=== PATIENT | female | born 1990 | race Caucasian/White ===

== ENCOUNTER 2017-08-27 04:24 | Emergency (ER) | payer BC ==
[2017-08-27 04:37] VITALS: O2SAT 98
--- NOTE | 2017-08-27 04:54 | ERPHSYRPT ---
- History of Present Illness Time Seen by Provider: 08/27/17 04:37 Source: patient Exam Limitations: no limitations Patient Subjective Stated Complaint: Anxiety Triage Nursing Assessment: Pt presents to the ED with complaints of chest heaviness, and anxiety. Pt states she has had a "cold" for approximately 4 days and then began to have anxiety and chest heaviness 2 days ago. Pt denies pain, sob, or other complaints. Pt is A&O x4, no distress noted. Physician History: FOR THE PAST 5 DAYS PT HAS HAD INTERMITTENT CHEST HEAVINESS LASTING UP TO 12 HOURS AND A NON-PRODUCTIVE COUGH; FOR THE PAST 4 HOURS SHAKINESS, PANIC AND DIARRHEA X1. PT DENIES SHORTNESS OF AIR, FEVER, VOMITING. Allergies/Adverse Reactions: No Known Drug Allergies Allergy (Unverified 08/27/17 04:39) Home Medications: Metformin HCl 500 mg [Glucophage 500 MG] 500 mg PO QAM 08/27/17 [History] Hx Tetanus, Diphtheria Vaccination/Date Given: Yes Hx Influenza Vaccination/Date Given: No Hx Pneumococcal Vaccination/Date Given: No Immunizations Up to Date: Yes - Review of Systems Constitutional: No Fever Respiratory: Cough, No Dyspnea Cardiac: Other (CHEST HEAVINESS) Abdominal/Gastrointestinal: Diarrhea, No Abdominal Pain, No Vomiting Neurological: Other (SHAKINESS; PANIC.) Endocrine: No Excessive Sweating All Other Systems: Reviewed and Negative - Past Medical History Pertinent Past Medical History: No Neurological History: No Pertinent History ENT History: No Pertinent History Cardiac History: No Pertinent History Respiratory History: No Pertinent History Endocrine Medical History: No Pertinent History Musculoskeletal History: No Pertinent History GI Medical History: No Pertinent History History: No Pertinent History Psycho-Social History: No Pertinent History Female Reproductive Disorders: Other Other Medical History: Polycystic ovarian syndrome. - Past Surgical History Past Surgical History: No Neuro Surgical History: No Pertinent History Cardiac: No Pertinent History Respiratory: No Pertinent History Gastrointestinal: No Pertinent History Genitourinary: No Pertinent History Musculoskeletal: No Pertinent History Female Surgical History: No Pertinent History - Social History Smoking Status: Never smoker Exposure to second hand smoke: No Drug Use: none Patient Lives Alone: No - Female History Hx Last Menstrual Period: 06/01/2018 Hx Now: No - Nursing Vital Signs Nursing Vital Signs: Initial Vital Signs Temperature 97.7 F 08/27/17 04:31 Pulse Rate 120 H 08/27/17 04:31 Respiratory Rate 15 08/27/17 04:31 Blood Pressure 136/93 08/27/17 04:31 O2 Sat by Pulse Oximetry 98 08/27/17 04:31 Pain Scale Pain Intensity 0 - Physical Exam General Appearance: alert, anxiety Eye Exam: PERRL/EOMI Ears, Nose, Throat Exam: TMs normal, pharynx normal, moist mucous membranes Neck Exam: normal inspection Respiratory Exam: lungs clear Cardiovascular Exam: normal heart sounds Gastrointestinal/Abdomen Exam: soft, normal bowel sounds Back Exam: normal range of motion Extremity Exam: normal inspection, No pedal edema Neurologic Exam: alert, cooperative Skin Exam: warm, dry SpO2 Interpretation: normal SpO2: 98 Oxygen Delivery: Room Air - Course Nursing assessment & vital signs reviewed: Yes EKG Interpreted by Me: RATE (105), Sinus Tach, NORMAL AXIS, Non-specific ST Changes - Radiology Exams Chest X-ray Interpretation: Interpreted by me, No Pneumonia Ordered Tests: Active Orders 24 hr Category Date Time Status Svp Group Director STAT Care 08/27/17 04:56 Active EKG-ER Only STAT Care 08/27/17 04:55 Active IV Insertion STAT Care 08/27/17 04:55 Active CHEST 2 VIEWS (PA AND LAT) Stat Exams 08/27/17 04:55 Ordered AMYLASE Stat Lab 08/27/17 05:32 Completed CBC W DIFF Stat Lab 08/27/17 05:32 Completed CMP Stat Lab 08/27/17 05:32 Completed CULTURE,URINE Stat Lab 08/27/17 04:55 Received D-DIMER QUANTITATION Stat Lab 08/27/17 05:32 Completed HCG QUALITATIVE,SERUM Stat Lab 08/27/17 05:32 Completed LIPASE Stat Lab 08/27/17 05:32 Completed MAGNESIUM Stat Lab 08/27/17 05:32 Completed NT PRO BNP Stat Lab 08/27/17 05:32 Completed TROPONIN Q3H Lab 08/27/17 05:32 Completed TROPONIN Q3H Lab 08/27/17 08:00 Ordered TROPONIN Q3H Lab 08/27/17 11:00 Ordered TROPONIN Q3H Lab 08/27/17 14:00 Ordered TROPONIN Q3H Lab 08/27/17 17:00 Ordered UA W/ MICROSCOPIC Stat Lab 08/27/17 04:55 Completed Urine Triage Profile Stat Lab 08/27/17 04:55 Completed Medication Summary Generic Name Dose Route Start Last Admin Trade Name Freq PRN Reason Stop Dose Admin Sodium Chloride 1,000 mls @ 100 mls/hr 08/27/17 05:00 08/27/17 05:29 Sodium Chloride 0.9% 1000 Ml IV 09/26/17 04:59 100 mls/hr .Q10H HAYLEY Administration Ceftriaxone Sodium/Dextrose 1 g in 50 mls @ 100 mls/hr 08/27/17 06:31 06:42 Rocephin 1 Gm-D5w 50 Ml Bag IV 08/27/17 07:00 100 mls/hr STAT STA Administration Discontinued Medications Generic Name Dose Route Start Last Admin Trade Name Pito PRN Reason Stop Dose Admin Aspirin 324 mg 08/27/17 04:55 08/27/17 05:28 Baby Aspirin 81 Mg Chew PO 08/27/17 04:56 324 mg STAT ONE Administration Aspirin Confirm 08/27/17 05:14 Baby Aspirin 81 Mg Chew Administered 08/27/17 05:15 Dose 324 mg .ROUTE .STK-MED ONE Diazepam 10 mg 08/27/17 04:56 08/27/17 05:28 Valium 5 Mg PO 08/27/17 04:57 10 mg STAT ONE Administration Diazepam Confirm 08/27/17 05:14 Valium 5 Mg Administered 08/27/17 05:15 Dose 10 mg .ROUTE .STK-MED ONE Ceftriaxone Sodium/Dextrose Confirm 08/27/17 06:41 Rocephin 1 Gm-D5w 50 Ml Bag Administered 08/27/17 06:42 Dose 1 g in 50 mls @ ud IV .STK-MED ONE Lab/Rad Data: Laboratory Result Diagrams 08/27/17 05:32 08/27/17 05:32 Laboratory Results 08/27/17 08/27/17 08/27/17 Range/Units 05:32 05:32 05:32 WBC (4.0-10.5) K/mm3 RBC (4.1-5.4) M/mm3 Hgb (12.0-16.0) gm/dl Hct (35-47) % MCV (78-100) fl MCH (26-32) pg MCHC (32-36) g/dl RDW (11.5-14.0) % Plt Count (150-450) K/mm3 MPV (6-9.5) fl Gran % (36.0-66.0) % Lymphocytes % (24.0-44.0) % Monocytes % (0.0-12.0) % Eosinophils % (0.00-5.0) % Basophils % (0.0-0.4) % Basophils # (0-0.4) D-Dimer 288.64 (0-500) ng/mL Sodium (136-145) mEq/L Potassium (3.5-5.1) mEq/L Chloride (98-107) mEq/L Carbon Dioxide (21-32) mEq/L Anion Gap (5-15) MEQ/L BUN (9-20) mg/dL Creatinine (0.55-1.30) mg/dl Estimated GFR ML/MIN Glucose (70-110) MG/DL Calcium (8.5-10.1) mg/dL Magnesium (1.8-2.4) mg/dL Total Bilirubin (0.2-1.0) mg/dL AST (15-37) U/L ALT (12-78) U/L Alkaline Phosphatase (46-116) U/L Troponin I < 0.017 (0.000-0.056) ng/ml NT-Pro-B Natriuret Pep (0-125) pg/ml Serum Total Protein (6.4-8.2) gm/dL Albumin (3.4-5.0) g/dL Amylase (25-115) U/L Lipase (73-393) U/L Serum , Qual NEGATIVE (Negative) Ur Collection Type Urine Color (YELLOW) Urine Appearance (CLEAR) Urine pH (5-6) Ur Specific [place] (1.005-1.025) Urine Protein (Negative) Urine Ketones (NEGATIVE) Urine Blood (0-5) Mitch/ul Urine Nitrite (NEGATIVE) Urine Bilirubin (NEGATIVE) Urine Urobilinogen (0-1) mg/dL Ur Leukocyte Esterase (NEGATIVE) Urine Microscopic RBC (0-2) /HPF Urine Microscopic WBC (0-5) /HPF Ur Epithelial Cells (FEW) /HPF Urine Bacteria (NEGATIVE) /HPF Urine Culture Reflexed (NO) Urine Glucose (NEGATIVE) mg/dL Urine Opiates Level (NEGATIVE) Ur Methadone (NEGATIVE) Urine Barbiturates (NEGATIVE) Ur Phencyclidine (PCP) (NEGATIVE) Urine Amphetamine (NEGATIVE) U Benzodiazepine Level (NEGATIVE) Urine Cocaine (NEGATIVE) Urine Marijuana (THC) (NEGATIVE) Specimen Received 08/27/17 08/27/17 08/27/17 Range/Units 05:32 05:32 04:55 WBC 8.8 (4.0-10.5) K/mm3 RBC 4.58 (4.1-5.4) M/mm3 Hgb 12.9 (12.0-16.0) gm/dl Hct 39.8 (35-47) % MCV 86.9 (78-100) fl MCH 28.2 (26-32) pg MCHC 32.4 (32-36) g/dl RDW 13.7 (11.5-14.0) % Plt Count 246 (150-450) K/mm3 MPV 10.2 H (6-9.5) fl Gran % 73.4 H (36.0-66.0) % Lymphocytes % 19.3 L (24.0-44.0) % Monocytes % 5.7 (0.0-12.0) % Eosinophils % 1.3 (0.00-5.0) % Basophils % 0.3 (0.0-0.4) % Basophils # 0.03 (0-0.4) D-Dimer (0-500) ng/mL Sodium 137 (136-145) mEq/L Potassium 4.0 (3.5-5.1) mEq/L Chloride 102 (98-107) mEq/L Carbon Dioxide 25.9 (21-32) mEq/L Anion Gap 12.6 (5-15) MEQ/L BUN 12 (9-20) mg/dL Creatinine 0.87 (0.55-1.30) mg/dl Estimated GFR > 60 ML/MIN Glucose 114 H (70-110) MG/DL Calcium 8.9 (8.5-10.1) mg/dL Magnesium 1.8 (1.8-2.4) mg/dL Total Bilirubin 0.20 (0.2-1.0) mg/dL AST 37 (15-37) U/L ALT 58 (12-78) U/L Alkaline Phosphatase 67 (46-116) U/L Troponin I (0.000-0.056) ng/ml NT-Pro-B Natriuret Pep 64 (0-125) pg/ml Serum Total Protein 7.9 (6.4-8.2) gm/dL Albumin 3.5 (3.4-5.0) g/dL Amylase 34 (25-115) U/L Lipase 156 (73-393) U/L Serum , Qual (Negative) Ur Collection Type Urine Color (YELLOW) Urine Appearance (CLEAR) Urine pH (5-6) Ur Specific [place] (1.005-1.025) Urine Protein (Negative) Urine Ketones (NEGATIVE) Urine Blood (0-5) Mitch/ul Urine Nitrite (NEGATIVE) Urine Bilirubin (NEGATIVE) Urine Urobilinogen (0-1) mg/dL Ur Leukocyte Esterase (NEGATIVE) Urine Microscopic RBC (0-2) /HPF Urine Microscopic WBC (0-5) /HPF Ur Epithelial Cells (FEW) /HPF Urine Bacteria (NEGATIVE) /HPF Urine Culture Reflexed (NO) Urine Glucose (NEGATIVE) mg/dL Urine Opiates Level NEG. (NEGATIVE) Ur Methadone NEG. (NEGATIVE) Urine Barbiturates NEG. (NEGATIVE) Ur Phencyclidine (PCP) NEG. (NEGATIVE) Urine Amphetamine NEG. (NEGATIVE) U Benzodiazepine Level NEG. (NEGATIVE) Urine Cocaine NEG. (NEGATIVE) Urine Marijuana (THC) NEG. (NEGATIVE) Specimen Received 08/27/17 Range/Units 04:55 WBC (4.0-10.5) K/mm3 RBC (4.1-5.4) M/mm3 Hgb (12.0-16.0) gm/dl Hct (35-47) % MCV (78-100) fl MCH (26-32) pg MCHC (32-36) g/dl RDW (11.5-14.0) % Plt Count (150-450) K/mm3 MPV (6-9.5) fl Gran % (36.0-66.0) % Lymphocytes % (24.0-44.0) % Monocytes % (0.0-12.0) % Eosinophils % (0.00-5.0) % Basophils % (0.0-0.4) % Basophils # (0-0.4) D-Dimer (0-500) ng/mL Sodium (136-145) mEq/L Potassium (3.5-5.1) mEq/L Chloride (98-107) mEq/L Carbon Dioxide (21-32) mEq/L Anion Gap (5-15) MEQ/L BUN (9-20) mg/dL Creatinine (0.55-1.30) mg/dl Estimated GFR ML/MIN Glucose (70-110) MG/DL Calcium (8.5-10.1) mg/dL Magnesium (1.8-2.4) mg/dL Total Bilirubin (0.2-1.0) mg/dL AST (15-37) U/L ALT (12-78) U/L Alkaline Phosphatase (46-116) U/L Troponin I (0.000-0.056) ng/ml NT-Pro-B Natriuret Pep (0-125) pg/ml Serum Total Protein (6.4-8.2) gm/dL Albumin (3.4-5.0) g/dL Amylase (25-115) U/L Lipase (73-393) U/L Serum , Qual (Negative) Ur Collection Type VOID Urine Color YELLOW (YELLOW) Urine Appearance CLEAR (CLEAR) Urine pH 7.0 (5-6) Ur Specific [place] 1.010 (1.005-1.025) Urine Protein NEGATIVE (Negative) Urine Ketones NEGATIVE (NEGATIVE) Urine Blood 5-10 (0-5) Mitch/ul Urine Nitrite NEGATIVE (NEGATIVE) Urine Bilirubin NEGATIVE (NEGATIVE) Urine Urobilinogen NORMAL (0-1) mg/dL Ur Leukocyte Esterase TRACE (NEGATIVE) Urine Microscopic RBC 2-5 (0-2) /HPF Urine Microscopic WBC 2-5 (0-5) /HPF Ur Epithelial Cells MODERATE (FEW) /HPF Urine Bacteria FEW (NEGATIVE) /HPF Urine Culture Reflexed YES (NO) Urine Glucose NEGATIVE (NEGATIVE) mg/dL Urine Opiates Level (NEGATIVE) Ur Methadone (NEGATIVE) Urine Barbiturates (NEGATIVE) Ur Phencyclidine (PCP) (NEGATIVE) Urine Amphetamine (NEGATIVE) U Benzodiazepine Level (NEGATIVE) Urine Cocaine (NEGATIVE) Urine Marijuana (THC) (NEGATIVE) Specimen Received 08/27/17 0600 - Departure Time of Disposition: 06:47 Departure Disposition: Home Clinical Impression: UTI, ANXIETY, CHEST HEAVINESS Condition: Stable Critical Care Time: No Referrals: DOCTOR,NO FAMILY [Primary Care Provider] - Instructions: Urinary Tract Infections in Adults, Chest Pain, Anxiety, Adult ( DC) Additional Instructions: FOLLOW UP WITH PRIVATE DOCTOR TOMORROW. Prescriptions: Cephalexin Monohydrate [Keflex] 500 mg PO TID #30 capsule
[2017-08-27] MEDS ORDERED: BABY ASPIRIN 81 MG CHEW PO ONE (04:55)
[2017-08-27] MEDS ORDERED: Valium 5 MG PO ONE (04:56)
[2017-08-27] MEDS ORDERED: Sodium Chloride 0.9% 1000 ML 1,000 ML IV SCH (05:00)
[2017-08-27] MEDS ORDERED: Valium 5 MG ONE (05:14)
[2017-08-27] MEDS ORDERED: BABY ASPIRIN 81 MG CHEW ONE (05:14)
[2017-08-27] MEDS ORDERED: Sodium Chloride 0.9% 1000 ML 1,000 ML ONE (05:15)
[2017-08-27 05:34] LABS: BASOPHIL % 0.3 % (0.0-0.4); Basophil (Absolute #) 0.03 (0-0.4); Eosinophil % 1.3 % (0.00-5.0); Eosinophil (Absolute #) 0.11 (0-0.5); Granulocyte Absolute (ANC) 6.45 (1.4-6.9); Granulocytes % 73.4 % (36.0-66.0); Hematocrit 39.8 % (35-47); Hemoglobin 12.9 gm/dl (12.0-16.0); Lymphocytes % 19.3 % (24.0-44.0); Mean Cell Volume 86.9 fl (78-100); Mean Corpuscular Hemoglobin 28.2 pg (26-32); Mean Corpuscular Hgb Concent. 32.4 g/dl (32-36); Mean Platelet Volume 10.2 fl (6-9.5); Monocytes % 5.7 % (0.0-12.0); Platelet Count 246 K/mm3 (150-450); Red Blood Count 4.58 M/mm3 (4.1-5.4); Red Cell Distribution Width 13.7 % (11.5-14.0); White Blood Count 8.8 K/mm3 (4.0-10.5)
[2017-08-27 06:12] LABS: Appearance CLEAR (CLEAR); Bilirubin NEGATIVE (NEGATIVE); Glucose NEGATIVE (NEGATIVE); Ketones NEGATIVE (NEGATIVE); Leukocyte Esterase TRACE (NEGATIVE); Nitrite NEGATIVE (NEGATIVE); Protein,Urine Dip NEGATIVE (Negative); Urobilinogen NORMAL mg/dL (0-1)
[2017-08-27 06:15] LABS: ALBUMIN 3.5 g/dL (3.4-5.0); ALKALINE PHOSPHATASE 67 U/L (46-116); AMYLASE 34 U/L (25-115); ANION GAP 12.6 MEQ/L (5-15); BLOOD UREA NITROGEN 12 mg/dL (9-20); CHLORIDE 102 mEq/L (98-107); Calcium 8.9 mg/dL (8.5-10.1); Carbon Dioxide 25.9 mEq/L (21-32); Creatinine 1 0.87 mg/dl (0.55-1.30); EST GLOMERULAR FILTRATION RATE > 60 ML/MIN; Glucose 114 MG/DL (70-110); LIPASE 156 U/L (73-393); NT PRO BNP 64 pg/ml (0-125); SGOT/AST 37 U/L (15-37); SGPT/ALT 58 U/L (12-78); SODIUM 137 mEq/L (136-145); Total Protein 7.9 gm/dL (6.4-8.2)
[2017-08-27 06:18] LABS: Amphetamine,Urine NEG. (NEGATIVE); Barbiturate,Urine NEG. (NEGATIVE); Benzodiazepine,Urine NEG. (NEGATIVE); Cocaine,Urine NEG. (NEGATIVE); Methadone,Urine NEG. (NEGATIVE); Opiate,Urine NEG. (NEGATIVE); PCP,Urine NEG. (NEGATIVE); THC,Urine NEG. (NEGATIVE)
[2017-08-27 06:21] LABS: Bacteria FEW /HPF (NEGATIVE); Epithelial Cells MODERATE /HPF (FEW)
[2017-08-27 06:30] VITALS: BP 116/67; PULSE 100
[2017-08-27] MEDS ORDERED: ROCEPHIN 1 Gm-D5w 50 ml Bag** 1 G/50 ML IVPB IV STA (06:31)
[2017-08-27] MEDS ORDERED: ROCEPHIN 1 Gm-D5w 50 ml Bag** 1 G/50 ML IVPB IV ONE (06:41)
--- NOTE | 2017-08-27 09:03 | XRAY ---
Indication: Chest heaviness. Comparison: None PA/lateral chest demonstrates subtle right middle lobe infiltrate versus atelectasis. Remaining heart, lungs, and bony thorax normal. Comment: Right lung finding not reported on preliminary interpretation by the ER clinician. Telephone report given to Dr. Elizalde in the ER at 0855 hrs. on August 27, 2017.
== END 2017-08-27 07:06 | disposition home or self-care (01) ==
LOC: ED 04:24
DX: N39.0 Urinary tract infection, site not specified (principal); F41.3 Other mixed anxiety disorders; R07.89 Other chest pain
CPT/HCPCS: 36000; 36415; 71046; 80053; 80307; 81000; 82150; 83690; 83735; 83880; 84484; 84703; 85025; 85379; 87086; 93005; 93041; 96360; 96361; 96365; 99284; J0696; A9270-GY